=== PATIENT | female | born 1980 | race Caucasian/White ===

== ENCOUNTER 2019-04-26 13:05 | Outpatient (CLI) | payer OTHER, BC ==
[2019-04-26 14:07] LABS: #Lymphocytes 0.3 thou/uL (1.20-3.40); #Monocytes 0.7 thou/uL (0.11-0.59); #Neutrophils 3.8 thou/uL (1.40-6.50); %Basophils 0.3 % (0.0-1.0); %Eosinophils 0.7 % (0.0-10.0); %Lymphocytes 5.7 % (21.0-51.0); %Monocytes 13.9 % (0.0-10.0); %Neutrophils 79.5 % (42.0-75.0); Hemoglobin 12.9 g/dL (12.0-16.0); Mean Corpuscular HGB CONC 34.2 g/dL (32.0-36.0); Mean Corpuscular Hemoglobin 31.4 pg (27.0-31.0); Mean Corpuscular Volume 91.9 fL (78.0-98.0); Mean Platelet Volume 7.3 fL (7.4-10.4); Platelet Count 276 thou/uL (130-400); RBC Distribution Width 11.1 % (11.5-14.5); Red Blood Cell (RBC) Count 4.11 mill/uL (4.20-5.40); White Blood Cell (WBC) Count 4.8 thou/uL (4.8-10.8)
[2019-04-26 14:22] LABS: Bacteria/HPF None Seen HPF (None Seen); Bilirubin Negative (Negative); Blood, Urine Negative (Negative); Clarity Clear (Clear); Glucose, Urine (Dipstick) Normal (Negative); Leukocyte Negative Leu/uL (Negative); Nitrite Negative (Negative); Protein, Urine (Dipstick) 10 mg/dL (Neg-Trace); RBC/HPF 0-3 HPF (0-3); Squamous Epithelial 0-3 HPF (0-3); Urobilinogen Normal mg/dL (Less than 2); WBC/HPF 0-3 HPF (0-3)
[2019-04-26 14:32] LABS: ALT (SGPT) 18 U/L (8-55); AST (SGOT) 17 U/L (5-34); Albumin 4.7 g/dL (3.5-5.0); Alkaline Phosphatase 88 U/L (40-110); Anion Gap 14 mmol/L (10-20); BUN (Urea Nitrogen) 8 mg/dL (7.0-18.7); Bilirubin, Total 0.3 mg/dL (0.2-1.2); Calc. Creatinine Clearance 0 mL/min (70-130); Calcium 9.3 mg/dL (7.8-10.44); Carbon Dioxide 25 mmol/L (22-29); Chloride 103 mmol/L (98-107); Estimated GFR-MDRD 80; Globulin 3.2 g/dL (2.4-3.5); Glucose 109 mg/dL (70-105); Potassium 3.7 mmol/L (3.5-5.1); Protein, Total 7.9 g/dL (6.0-8.3); Sodium 138 mmol/L (136-145)
--- NOTE | 2019-04-26 15:33 | CT ---
EXAM: Abdomen and pelvic CT scan with contrast: HISTORY: Pain COMPARISON: None FINDINGS: The visualized lung bases are clear. Liver: Imaged portions of the liver are unremarkable. Portion of the hepatic dome was excluded from v iew for comment. Gallbladder: Unremarkable. Pancreas: Unremarkable Spleen: Unremarkable. Adrenal glands: Unremarkable. Kidneys: No renal calculus or acute obstruction. Punctate hypodensity within the right kidney is t oo small to further characterize. Bowel: No evidence for bowel obstruction. Mild wall prominence of the rectosigmoid colon could relate to a component of localized colitis. Mild stranding fat stranding is present. There are scattered, borderline-sized retroperitoneal lymph nodes, nonspecific. Urinary Bladder: Decompressed and unopacified, limiting assessment Free Air: No free air. Ascites: No ascites. Osseous structures: No acute osseous abnormalities. IMPRESSION: Wall prominence, and slight surrounding fat stranding of the unopacified rectosigmoid colon. This cou ld be on the basis of acute inflammation. Recommend clinical correlation for proctocolitis. Transcribed Date/Time: 04/26/2019 3:54 PM
== END 2019-04-26 13:06 | disposition home or self-care (01) ==
LOC: CT 13:05
PROVIDERS: ATTEND Internal Medicine Gastroenterology
DX: R10.30 Lower abdominal pain, unspecified (principal)
CPT/HCPCS: 74177; 80053; 81001; 82150; 85025; 87086